=== PATIENT | female | born 1940 | race Caucasian/White ===

== ENCOUNTER 2017-12-11 23:24 | Inpatient (IN) | END 2017-12-14 15:55 | disposition home health service (06) | DRG 689 ==

== ENCOUNTER 2019-01-23 21:34 | Emergency (ER) | payer OTHER ==
[~2019-01-23] VITALS: Ht 149.9 cm; Wt 44.7 kg
[~2019-01-23 21:34] MED LIST: CIPR500T4 PO; DONE10TA7 PO; DULO60CA59 PO; ESCI20TA38 PO; LEVO50TA7 PO; MEMA10TA PO; SIMV40TA2 PO; TEMA30CA PO; VALS320T2 PO
[2019-01-23 21:39] VITALS: Ht 149.9 cm; Wt 44.7 kg
--- NOTE | 2019-01-23 22:16 | ERD ---
ER Documentation Chief Complaint Chief Complaint isbell HPI The patient is a 78-year-old female, presenting to the ER because she had a mechanical fall around 5 PM, hitting the back of her head on the ground, complains of head pain and right hand pain. She denies fever, chills, syncope, near syncope, facial pain, neck pain, chest pain, dyspnea, abdominal pain, vomiting, dysuria, diarrhea. She does not smoke, does not have tetanus injection for many years Past medical history: Depression, hypertension, dementia, dyslipidemia, hypothyroidism, anxiety Past surgical history: None ROS All systems reviewed and are negative except as per history of present illness. Medications Home Meds Active Scripts Acetaminophen* (Acetaminophen*) 650 Mg Tablet, 650 MG PO Q6H PRN for PAIN AND OR ELEVATED TEMP, #30 TAB Prov:LEXA BELLO MD 01/23/19 Ciprofloxacin Hcl* (Ciprofloxacin Hcl*) 500 Mg Tablet, 500 MG PO BID for 3 Days, #6 TAB Prov:JEAN-PIERRE MOJICA 12/14/17 Reported Medications Duloxetine Hcl* (Duloxetine Hcl*) 60 Mg Capsule.dr, 60 MG PO DAILY, #30 CAP 12/11/17 Escitalopram Oxalate* (Escitalopram Oxalate*) 20 Mg Tablet, 20 MG PO DAILY, #30 TAB 12/11/17 Valsartan* (Diovan*) 320 Mg Tablet, 320 MG PO DAILY, TAB 12/11/17 Memantine* (Namenda*) 10 Mg Tablet, 10 MG PO BID, #60 TAB 12/11/17 Donepezil* (Aricept*) 10 Mg Tablet, 10 MG PO DAILY, TAB 12/11/17 Simvastatin* (Zocor*) 40 Mg Tablet, 40 MG PO QHS, #30 TAB 12/11/17 Levothyroxine Sodium* (Levothyroxine Sodium*) 50 Mcg Tablet, 50 MCG PO BEFORE B REAKFAST, #30 TAB 12/11/17 Temazepam* (Temazepam*) 30 Mg Capsule, 30 MG PO HS PRN for INSOMNIA, CAP 12/11/17 Allergies Allergies: Coded Allergies: No Known Allergy (Unverified , 12/11/17) PMhx/Soc History of Surgery: No Anesthesia Reaction: No Hx Neurological Disorder: Yes Hx Respiratory Disorders: No Hx Cardiac Disorders: No Hx Psychiatric Problems: No Hx Miscellaneous Medical Probl: Yes (HTN, DEPRESSION, ) Hx Alcohol Use: No Hx Substance Use: No Hx Tobacco Use: No Smoking Status: Never smoker Physical Exam Vitals Vital Signs Date Temp Pulse Resp B/P (MAP) Pulse Ox O2 O2 Flow FiO2 Time Delivery Rate 01/23/19 73 20 102/57 98 Room Air 23:24 (72) 01/23/19 99.3 68 20 160/73 96 21:39 (102) Physical Exam Const: No acute distress. Head: Atraumatic. Small hematoma and minimal abrasion at the occiput, not amenable for sutures Eyes: Normal Conjunctiva. ENT: Normal External Ears, Nose and Mouth. Neck: Full range of motion. No meningismus. Resp: Clear to auscultation bilaterally. Cardio: Regular rate and rhythm. Abd: Soft, non distended, normal bowel sounds, non tender. Skin: No petechiae or rashes. Back: No midline or flank tenderness. Ext: Right hand with minimal tenderness at the MCP joint, no la ceration Neur: Awake and alert. No focal deficit Psych: Normal Mood and Affect. Results 24 hrs Current Medications Medications Dose Sig/Jay Jay Start Time Status Last (Trade) Ordered Route PRN Stop Time Admin Dose Reason Admin Diphtheria/ 0.5 ml ONCE ONCE 01/23/19 DC 01/23/19 Tetanus/Acell IM* 23:00 22:46 Pertussis 01/23/19 23:01 (Adacel) 650 mg ONCE ONCE 01/24/19 Acetaminophen PO 00:00 (Tylenol 01/24/19 00:01 Tab) Procedures/[place] [address] Radiology Main Line: [phone] DIAGNOSTIC IMAGING REPORT Patient: MIRANDA FERRER : 1940 Age: 78 Sex: F [id number] [id number] DOS: 01/23/192238 Ordering MD: LEXA BELLO MD Location: E/R Room/Bed: PROCEDURE: CT Brain without contrast. CLINICAL INDICATION: Headache. TECHNIQUE: A CT of the brain was performed utilizing axial imaging from the skull base through the vertex without IV contrast. Multiplanar reformatted images were made. Images were reviewed on a PACS workstation. The CTDIvol is 39.25 mGy and the DLP is 634.23 mGycm. DICOM images are available. One or more of the following dose reduction techniques were utilized: 1.) Automated exposure control 2.) Adjustment of the mA +/- kV according to patient's size 3.) Use of iterative reconstruction technique. COMPARISON: CT examination of the head dated 12/11/2017. MRI examination of the brain dated 12/12/2017. FINDINGS: Mild posterior right occipital scalp hematoma is new over interval. Chronic changes of atrophy and small vessel disease white matter are without significant exchange mechanic interval. Volume loss is greater in the left cerebral hemisphere, without significant exchange mechanic interval. Findings may represent the sequela of chronic atrophy. There is no intracranial hemorrhage, mass effect, or midline shift. No extra- axial fluid collection is seen. The ventricles and sulci are otherwise normal in size and configuration. Dystrophic calcifications are again seen in the left basal ganglia, without significant exchange mechanic interval. The density of the remaining brain is otherwise normal, and the sequeira white matter differentiation appears well-preserved. The visualized paranasal sinuses and osseous structures are grossly unremarkable. IMPRESSION: 1. Chronic changes of atrophy and small vessel disease white matter are without significant exchange mechanic interval. 2. Chronic volume loss is again left greater than right, and may be secondary to changes of atrophy. 3. Dystrophic calcifications again seen in the left basal ganglia, without significant exchange mechanic interval since the prior examination dated 12/11/2017. 4. Otherwise, no evident acute process in the head. RPTAT: [facility] Physician [place] Date Time Electronically viewed and signed by Physician [place] on 01/23/2019 23:34 RS/ CC: LEXA BELLO MD [id number] [place] [address] Radiology Main Line: [phone] DIAGNOSTIC IMAGING REPORT Patient: MIRANDA FERRER : 1940 Age: 78 Sex: F MR #: [id number] DOS: 01/23/19 2239 Ordering MD: LEXA BELLO MD Location: E/R Room/Bed: PROCEDURE: X-ray right hand. CLINICAL INDICATION: Pain. Reference markers are directed towards the dorsal and medial aspects of the right hand. TECHNIQUE: AP, lateral and oblique views of the right hand. COMPARISON: FINDINGS: Mildly displaced intra-articular fractures are seen at the dorsal aspects of the proximal metaphysis of the fourth and fifth distal phalanges. These findings seen only on the lateral projection. The Remaining osseous structures are without evident acute fracture. Demineralization limits evaluation of fine osseous detail. Chronic changes of osteoarthritis at the interphalangeal joints of the fingers w ith joint compartment narrowing, greatest at the second DIP joint with [place] node. There are bilateral marginal, dorsal and volar osteophytes at the second DIP joint. IMPRESSION: 1. Mildly displaced intra-articular fractures are seen at the bases of the fourth and fifth distal phalanges, seen only on the lateral projection. 2. Demineralization limits evaluation of fine osseous detail. 3. 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 4. Remaining osseous structures are without evident acute fracture. RPTAT: [facility] [place] Date Time Electronically viewed and signed by Physician [place] on 01/23/2019 23:42 RS/ CC: LEXA BELLO MD [id number] MEDICAL MAKING DECISION: The patient is a 78-year-old female, presenting with acute scalp laceration/contusion, acute right fourth and fifth finger fracture. She was treated with tetanus injection, Tylenol p.o. for pain, ulnar gutter and sling. Post splint neurovascular is intact The differential diagnoses considered include but are not limited to fracture, internal derangement, contusion, sprain Laceration Repair by me: Anesthesia: None Location: Scalp Tendon/Joint/Nerves: No injury Foreign body: None detected after copious irrigation and exploration Technique: Tissue adhesive Complexity: No subcutaneous sutures/mucosal repair/edge excision Post Closure Length: 1 cm Patient's bleeding was easily controlled in the department and there is no indication of anemia. No evidence of compartment syndrome, neurologic injury, vascular injury, open joint, tendon laceration, or foreign body. Patient is appropriate for outpatient follow up. 48 hour wound check. Scar minimization instructions given. Departure Diagnosis: Primary Impression: Scalp contusion Additional Impressions: Scalp laceration Fingers fractured Condition: Good Comments She was discharged with Tylenol and copy of x-ray I discussed the findings with the patient. I advised the patient to follow-up with the java integration developer ortho Dr Wallace in about 2-3 days, sooner if needed and return if any concern. Disclaimer: Inadvertent spelling and grammatical errors are likely due to EHR/dictation software use and do not reflect on the overall quality of patient care. Also, please note that the electronic time recorded on this note does not necessarily reflect the actual time of the patient encounter. LEXA BELLO MD January 23, 2019 22:16
[2019-01-23] MEDS ORDERED: DIPHTH/TET/ACEL PERTUSS (ADULT) 0.5 ML VIAL IM* ONE (23:00)
[2019-01-23] MEDS ORDERED: ACET-2047 PO (23:49)
[2019-01-24] MEDS ORDERED: ACETAMINOPHEN 325 MG TAB PO ONE
[2019-01-24 00:08] VITALS: BP 116/72; PULSE 76; RESP 16
== END 2019-01-24 00:09 | disposition home or self-care (01) ==
LOC: E/R 21:34
DX: S62.636A Displaced fracture of distal phalanx of right little finger, initial encounter for closed fracture (principal); S01.01XA Laceration without foreign body of scalp, initial encounter; S62.634A Displaced fracture of distal phalanx of right ring finger, initial encounter for closed fracture; I10 Essential (primary) hypertension; E03.9 Hypothyroidism, unspecified; W01.198A Fall on same level from slipping, tripping and stumbling with subsequent striking against other object, initial encounter; Z23 Encounter for immunization
CPT/HCPCS: 70450; 90471; 90715